=== PATIENT | female | born 1960 | race Caucasian/White ===

== ENCOUNTER → 2017-01-07 | Outpatient (CLI) | payer OTHER, MEDICAID ==
[2015-03-20 18:57] VITALS: BP 169/95
--- NOTE | 2017-01-07 16:33 | MG ---
Examination: Bilateral screening mammogram. Clinical history: Routine screening. Technique: Digital CC and MLO views of both breasts were obtained. Computer aided detection analysis was performed and used during the interpretation. Comparison: 01/03/2016. Findings: The breasts are composed of scattered fibroglandular densities. Benign-appearing calcifications are noted in the breasts bilaterally. There is a new 7 mm nodular opacity seen in the central to lower aspect of the left breast in the po sterior depth on the MLO view only. Additional imaging evaluation is recommended, with a spot compre ssion magnification view in the MLO projection, a lateral view, an exaggerated CC view and a cleavag e view, as well as a left breast ultrasound. No suspicious mass, area of architectural distortion or suspicious cluster of microcalcifications is noted in the right breast. Impression: 1. New density in the left breast, as described above. BI-RADS category 0 (ZERO) - ASSESSMENT INCOMPLETE; ADDITIONAL IMAGING IS NEEDED Recommend immediate recall for additional imaging evaluation, as described above. Diagnostic CAD was utilized and reviewed. * 0 (ZERO) - ASSESSMENT INCOMPLETE; ADDITIONAL IMAGING IS NEEDED. * 0C - ASSESSMENT INCOMPLETE, NEEDS ADDITIONAL IMAGING EVALUATION AND/OR PRIOR MAMMOGRAMS FOR COMPAR LUIZA. * 1/1 (ONE) - NEGATIVE. * 2/II (TWO) - BENIGN FINDINGS. * 3/III (THREE) - PROBABLY BENIGN FINDING; SHORT INTERVAL FOLLOW-UP SUGGESTED. * 4/IV (FOUR) - SUSPICIOUS ABNORMALITY; BIOPSY SHOULD BE CONSIDERED. * 5/V - HIGHLY SUSPICIOUS OF MALIGNANCY; BIOPSY SHOULD BE PERFORMED. * 6/IV - KNOWN BIOPSY PROVEN MALIGNANCY-APPROPRIATE ACTION SHOULD BE TAKEN. A NEGATIVE X-RAY REPORT SHOULD NOT DELAY BIOPSY IF A DOMINANT OR CLINICALLY SUSPICIOUS MASS IS PRESENT; 4 TO 8 PERCENT OF CANCERS ARE NOT IDENTIFIED BY X-RAY. A NEGATIVE REPORT MAY REINFORCE THE CLINICAL IMPRESSION. ADENOSIS AND DENSE BREASTS MAY OBSCURE AN UNDERLYING NEOPLASM. Reported By:
== END ==
LOC: RAD 14:31
PROVIDERS: ATTEND Specialist
DX: Z12.31 Encounter for screening mammogram for malignant neoplasm of breast (principal)
CPT/HCPCS: 77067

== ENCOUNTER → 2017-01-22 | Outpatient (CLI) | payer OTHER, MEDICAID ==
[2015-03-20 18:57] VITALS: BP 169/95
== END ==
LOC: RAD 12:06
PROVIDERS: ATTEND Specialist
DX: R92.8 Other abnormal and inconclusive findings on diagnostic imaging of breast (principal)
CPT/HCPCS: 76642; 77065

== ENCOUNTER → 2017-09-03 | Outpatient (CLI) | payer OTHER, MEDICAID ==
[2015-03-20 18:57] VITALS: BP 169/95
--- NOTE | 2017-09-03 14:13 | MG ---
HISTORY: Six-month follow-up left breast nodule Study: Left breast digital diagnostic mammography with CAD Comparison: Multiple previous exams dating back to December 12, 2010 Findings: Spot compression CC, MLO, and mL views of the left breast were obtained. There is a stable 4 mm parti ally obscured and partially circumscribed isodense nodule in the upper medial quadrant most compatibl e with a tiny cyst or intramammary lymph node. Benign calcifications are noted. There is no principal solutions architect ural distortion. There is no skin thickening or nipple retraction. No pathologic axillary lymphadenop athy is identified. IMPRESSION: Probably benign upper medial left breast nodule for which an additional six-month follow-up is recomm ended. The patient should undergo bilateral mammographic imaging at that time. BI-RADS 3. Probably benign findings; short interval follow-up suggested. * 0 (ZERO) - ASSESSMENT INCOMPLETE; ADDITIONAL IMAGING IS NEEDED. * 1/ (ONE) - NEGATIVE. * 2/II (TWO) - BENIGN FINDINGS. * 3/III (THREE) - PROBABLY BENIGN FINDING; SHORT INTERVAL FOLLOW-UP SUGGESTED. * 4/IV (FOUR) - SUSPICIOUS ABNORMALITY; BIOPSY SHOULD BE CONSIDERED. * 5/V (FIVE) - HIGHLY SUSPICIOUS OF MALIGNANCY; BIOPSY SHOULD BE PERFORMED. * 6/ (SIX) - KNOWN MALIGNANCY. A NEGATIVE X-RAY REPORT SHOULD NOT DELAY BIOPSY IF A DOMINANT OR CLINICALLY SUSPICIOUS MASS IS PRESENT; 4 TO 8 PERCENT OF CANCERS ARE NOT IDENTIFIED BY X-RAY. A NEGA TIVE REPORT MAY REINFORCE THE CLINICAL IMPRESSION. ADENOSIS AND DENSE BREASTS MAY OBSCURE AN UNDERLY ING NEOPLASM. Reported By:
== END ==
LOC: RAD 12:43
PROVIDERS: ATTEND Specialist
DX: R92.8 Other abnormal and inconclusive findings on diagnostic imaging of breast (principal)
CPT/HCPCS: 77065

== ENCOUNTER → 2017-10-10 | Outpatient (CLI) | payer OTHER, MEDICAID ==
[2015-03-20 18:57] VITALS: BP 169/95
[~2017-10-10] MED LIST: LEXISCAN IV ONE
== END ==
LOC: RAD 08:05
PROVIDERS: ATTEND Internal Medicine Cardiovascular Disease
DX: R06.09 Other forms of dyspnea (principal)
CPT/HCPCS: 78452; 93017; A4222; A9502; J2785

== ENCOUNTER → 2017-11-07 | Outpatient (CLI) | payer OTHER, MEDICAID ==
[2015-03-20 18:57] VITALS: BP 169/95
[~2017-11-07] MED LIST changes: -LEXISCAN IV ONE; +NS 100 ML IV 100 ML IV ONE
[2017-11-07 08:25] LABS: CREATININE 0.66 mg/dL (0.55-1.02)
--- NOTE | 2017-11-07 10:00 | CT ---
HISTORY: Abdominal pain Study: CT abdomen and pelvis with contrast Comparison: None Technique: Multiple axial images of the abdomen and pelvis were obtained with IV contrast. Oral contrast was ad ministered. Dose reduction techniques including Automated Exposure Control (AEC) and adjustment of mA and kV were utilized. Findings: The visualized portions of the lung bases are clear. The liver is enlarged measuring 22 cm with diff use hepatic steatosis. The gallbladder is normal. The spleen, pancreas, kidneys, and adrenal glands a re unremarkable. No renal calculi or obstructive uropathy identified. No free intraperitoneal air. No evidence of intestinal obstruction or inflammation. The appendix is r emoved. No free fluid is identified. There is retained stool throughout the colon. There is a fat containing supraumbilical hernia. A portion of the transverse colon wall is also seen mildly protruding through the hernia defect without evidence of incarceration. The vascular structure s are within normal limits for age. No pathologically enlarged lymph nodes are identified. The uterus is removed. Urinary bladder is unremarkable. IMPRESSION: 1. Hepatomegaly/hepatic steatosis. 2. Supraumbilical hernia primarily containing fat but also a small portion of the transverse colon wa ll also protruding through the defect without evidence of incarceration or obstruction. 3. Postsurgical changes as described. Reported By:
== END ==
LOC: RAD 08:00
PROVIDERS: ATTEND Nurse Practitioner Family
DX: R10.31 Right lower quadrant pain (principal); R10.33 Periumbilical pain; K43.2 Incisional hernia without obstruction or gangrene
CPT/HCPCS: 36415; 74177; 82565; 84520; A4222

== ENCOUNTER → 2017-11-13 | Day surgery (SDC) | payer OTHER, MEDICAID ==
[~2017-11-13] MED LIST changes: +BENADRYL INJ 50 MG VIAL IVP PRN; +CLEOCIN 600 MG IV PREMIX 600 MG/50 ML BAG IV ONE; +DILAUDID INJ IVP PRN; +DIPRIVAN VIAL ONE; +FENTANYL INJ 100 mcg ONE; +FENTANYL INJ 250 mcg ONE; +LTA KIT LIDOCAINE 4% ONE; +MARCAINE 0.25% INJ ONE; +NEOSTIGMINE INJ ONE; +NORCURON INJ 10 MG VIAL ONE; -NS 100 ML IV 100 ML IV ONE; +NS 1000 ML 1,000 ML ONE; +NS IRRIGATION 1000 ML 1,000 ML IR ONE; +PHENERGAN INJ 25 MG IVP PRN; +QUELICIN (OR ANECTINE) ONE; +REGLAN INJ 10 MG VIAL IVP PRN; +ROBINUL ONE; +SUPRANE IN ONE; +VERSED ONE; +XYLOCAINE 1% and EPINEPHRINE 1:100,000 ONE; +XYLOCAINE 2 % (PLAIN) ONE; +ZOFRAN INJ 4 MG VIAL IVP PRN; +ZOFRAN INJ 4 MG VIAL ONE
--- NOTE | 2017-11-13 14:02 | OR.GENERIC ---
Post-Op Note Generic - Post-Op Note Operative Report: Operative Report Date of Operation: November 13, 2017 Pre-Operative Diagnosis: Incarcerated incisional hernia. Post-Operative Diagnosis: Incarcerated incisional hernia. Procedure: Open incisional hernia repair with overlay mesh. Surgeon: Mikal Rivero MD Paint Stripper: Av Díaz CRNA Specimens: None. Estimated blood loss: Minimal. Complications: None. Summary: The patient is a 57 year old female who presented with an incarcerated incisional hernia. The patient was offered incisional hernia repair. The risk and benefits of the procedure including difficulty with anesthesia, bleeding, infection, injury to intraabdominal contents requiring further surgery, recurrence, DVT, as well as PE were discussed with the patient. The patient understood these risks and requested the procedure. On November 13, 2017, the patient was brought to the operative theatre. A time out was performed verifying the patient and procedure. The patient received clindamycin for pre-operative antibiosis. After satisfactory induction of general endotracheal anesthesia, the abdomen was prepped with Chloraprep and draped in the usual sterile fashion. Local anesthetic was infiltrated around the hernia. The skin was incised sharply in the previous scar overlying the hernia. The incision was slowly carried through the dermis sharply until the hernia sac was encountered. The hernia sac was elevated and opened sharply. The remaining dermis and hernia sac was opened over the surgeons finger using electrocautery. A large component of the omentum was seen in the incarcerated hernia. This could not be reduced into the peritoneal cavity. A small portion of the omentum was removed using electrocautery. A knuckle of colon was dissected free using sharp dissection and electrocautery. The hernia sac was then cleared from the fascia circumferentially at the fascial defect which measured approximately 3-1/2 cm. The incarcerated bowel and omentum were placed back inside the peritoneal cavity. The fascia was re-approximated transversely using interrupted #2 Ethibond sutures. A piece of prolene mesh was cut in a rectangular shape to fit over the hernia repair. This was placed in an overlay fashion and sutured to the fascia using #2 Prolene sutures. The wound was irrigated. Bleeding was controlled using electrocautery. A stab incision was placed in the right lower quadrant and a #10 flat drain placed in the wound. This was sutured in placed with 2-0 Prolene. The dermis was re- approximated using inverted, interrupted 3-0 Vicryl sutures. The skin edges were re-approximated using a running 4-0 Monocryl stitch. Mastisol and Steri- strips were placed. Sterile dressings were placed. The patient was awakened and taken to the recovery room in stable condition. There were no complications. All counts were correct.
[2017-11-13 15:18] VITALS: BP 106/51
== END | disposition home or self-care (01) | DRG 355 ==
LOC: SURG1 08:56
PROVIDERS: ATTEND Student in an Organized Health Care Education/Training Program
PROC: 0WUF0JZ Supplement Abdominal Wall with Synthetic Substitute, Open Approach (ICD-10-PCS; principal; 2017-11-13 11:30)
DX: K43.0 Incisional hernia with obstruction, without gangrene (principal)
CPT/HCPCS: A4216; A4222; S0020; J0077; J0330; J2001; J2250; J2405; J2710; J3010; J3490